=== PATIENT | female | born 1960 | race Caucasian/White ===

== ENCOUNTER → 2017-07-16 | Outpatient (CLI) | payer BC ==
[2014-04-05 15:15] VITALS: BP 135/73
[~2017-07-16] MED LIST: ESTRADIOL PO; LEVO100T PO; PRAS25TA PO; PROGEST PO; SENN8.6T99 PO
--- NOTE | 2017-07-16 11:32 | RAD ---
Bilateral knees, 07/16/2017: History: Chronic knee pain The knee joint spaces appear well preserved. No fracture or dislocation is identified. No marginal spurring is evident. No joint effusion is seen. IMPRESSION: No significant abnormality is detected.
== END | disposition home or self-care (01) ==
LOC: PMG 10:13
PROVIDERS: ATTEND Physician Assistant Medical
DX: M25.561 Pain in right knee (principal); M25.562 Pain in left knee; G89.29 Other chronic pain
CPT/HCPCS: 73562

== ENCOUNTER → 2017-11-17 | Outpatient (CLI) | payer BC ==
[2014-04-05 15:15] VITALS: BP 135/73
--- NOTE | 2017-11-17 11:13 | RAD ---
Examination: 3 views of the left ankle HISTORY: History of left ankle pain for one day, twisting COMPARISON: None available FINDINGS: The ankle mortise appears intact. There is no acute fracture or dislocation identified. IMPRESSION: No acute osseous findings. Electronically signed by: Vazquez Dominguez MD (11/17/2017 11:09 AM) [facility]
== END | disposition home or self-care (01) ==
LOC: RAD 10:39
PROVIDERS: ATTEND Family Medicine
DX: M25.572 Pain in left ankle and joints of left foot (principal); E03.9 Hypothyroidism, unspecified
CPT/HCPCS: 73610

== ENCOUNTER → 2018-05-14 | Outpatient (CLI) | payer BC ==
[2014-04-05 15:15] VITALS: BP 135/73
--- NOTE | 2018-05-14 16:25 | RAD ---
EXAM: Chest, 2 views. HISTORY: Cigarette smoking. Cough. COMPARISON: None. FINDINGS: 2 views of the chest are obtained. There is no infiltrate, pleural effusion or pneumothorax. The heart is normal in size. IMPRESSION: No acute pulmonary finding. Electronically signed by: Macy Delgadillo MD (05/14/2018 4:21 PM) [place] [id number]
== END | disposition home or self-care (01) ==
LOC: RAD 15:31
PROVIDERS: ATTEND Physician Assistant Medical
DX: R05 Cough (principal); Z72.0 Tobacco use
CPT/HCPCS: 71046

== ENCOUNTER → 2018-07-12 | Outpatient (CLI) | payer BC ==
[2014-04-05 15:15] VITALS: BP 135/73
[~2018-07-12] MED LIST changes: +IOHEXOL 240 MG/ML 50ML VIAL. ONE
--- NOTE | 2018-07-12 10:50 | RAD ---
CT of the abdomen without contrast, 07/12/2018: HISTORY: Left upper quadrant pain Multidetector CT imaging was performed following oral administration of contrast. No IV contrast was administered for this exam as requested. This limits evaluation of the abdominal structures. The unopacified liver is unremarkable. The gallbladder is collapsed. No dense gallstones are seen. The pancreas is unremarkable. The spleen is of normal size. The unopacified kidneys show no abnormality. There is mild aortic calcific plaquing without evidence of aneurysm. No periaortic or mesenteric adenopathy is seen. The visualized bowel loops are not dilated. There is a small amount retained food in the stomach. No free fluid or free air is evident in the abdomen or pelvis. 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 IMPRESSION: Limited exam demonstrating no acute abdominal abnormality. PQRS Compliance Statement: One or more of the following individualized dose reduction techniques were utilized for this examination: 1. Automated exposure control 2. Adjustment of the mA and/or kV according to patient size 3. Use of iterative reconstruction technique Electronically signed by: Marco Antonio Mulligan MD (07/12/2018 10:47 AM) [facility]
== END | disposition home or self-care (01) ==
LOC: CT 09:05
PROVIDERS: ATTEND Physician Assistant Medical
DX: M43.16 Spondylolisthesis, lumbar region (principal); I70.0 Atherosclerosis of aorta
CPT/HCPCS: 74150

== ENCOUNTER → 2018-08-28 | Outpatient (CLI) | payer BC ==
[2014-04-05 15:15] VITALS: BP 135/73
[~2018-08-28] MED LIST changes: -IOHEXOL 240 MG/ML 50ML VIAL. ONE
--- NOTE | 2018-08-28 14:41 | RAD ---
CT chest without contrast dated 08/28/2018. Comparison made to abdomen pelvic CT dated 07/12/2018. CLINICAL INDICATION: Left lower chest wall pain no known injury. TECHNIQUE: Contiguous axial imaging of the chest performed without the administration of IV contrast. One or more of the following individualized dose reduction techniques were utilized for this examination: 1. Automated exposure control 2. Adjustment of the mA and/or kV according to patient size 3. Use of iterative reconstruction technique. FINDINGS: Heart size within normal limits. No pericardial effusion. There are nonpathologically enlarged right paratracheal and free carinal lymph nodes. No apparent axillary or hilar adenopathy. Bilateral breast implants. Thyroid gland unremarkable. Central airways are patent. Mild emphysema. Lungs are otherwise clear. No consolidation or pleural effusion. No pneumothorax. Images of upper abdomen unremarkable. Well-circumscribed low-density focus lateral segment left lobe liver measures 1.2 cm, unchanged from prior study. Bone windows show no acute findings. No apparent rib fracture. Mild multilevel level thoracic spondylosis. IMPRESSION: 1. No acute abnormality of chest. 2. Mild emphysema. Electronically signed by: Winston Isbell MD (08/28/2018 2:38 PM) [id number]
== END | disposition home or self-care (01) ==
LOC: CT 10:25
PROVIDERS: ATTEND Physician Assistant Medical
DX: J43.9 Emphysema, unspecified (principal); R59.0 Localized enlarged lymph nodes; M47.814 Spondylosis without myelopathy or radiculopathy, thoracic region; Z98.82 Breast implant status
CPT/HCPCS: 71250